=== PATIENT | female | born 1955 | race Caucasian/White ===

== ENCOUNTER → 2017-05-07 | Outpatient (CLI) | payer BC ==
--- NOTE | 2017-05-07 13:06 | ECHOS ---
STRESS ECHOCARDIOGRAM DATE OF SERVICE: 05/07/17 INDICATIONS: Chest pain MEDICATIONS:: Aspirin. BASELINE HEART RATE: 97 BASELINE BLOOD PRESSURE: 152/56 MAXIMUM HEART RATE: 157 MAXIMUM BLOOD PRESSURE: 188/69 85% MPHR: 136 100% MPHR: 160 METS: 8.3 MAXIMUM STAGE REACHED: 3 TOTAL EXERCISE TIME: 7 minutes INDICATIONS: Chest pain. CLINICAL INFORMATION: Chest pain. RESULTS: Showed a heart rate of 97, pressure is 152/36 mmHg. Baseline EKG showed sinus mechanism. The patient exercised on the Tucker protocol for a total of 7 minutes and achieved a with max heart rate was 157 beats per minute which is about 98% of maximum predicted heart rate. Maximum blood pressure was 188/69 mmHg. Clinically, the patient did not have any symptoms of chest pain or discomfort. The EKG showed about 0.[address]-segment depression. Echocardiogram images and echocardiogram images from parasternal long axis view, parasternal short axis view, apical 4 chamber view and apical 2 chamber views were obtained as a baseline images at the peak of the heart rate, as well as on recovery. The echocardiogram images showed overall good augmentation in the left ventricular systolic function without any evidence of wall motion abnormalities consistent with ischemia. CONCLUSION: 1. Good exercise capacity. 2. Mild EKG changes in response to exercise. 3. Normal echocardiogram in response to exercise. MMODL / IJN: [id number] /
--- NOTE | 2017-05-09 07:22 | MM ---
Reason for exam: screening (asymptomatic). Last mammogram was performed 1 year and 5 months ago. History: Patient is postmenopausal. Took hormonal contraceptives for 11 years. Physical Findings: A clinical breast exam by your physician is recommended on an annual basis and results should be correlated with mammographic findings. MG Screening Mammo w CAD Bilateral CC and MLO view(s) were taken. Prior study comparison: November 24, 2015, bilateral MG screening mammo w CAD. October 28, 2014, bilateral MG screening mammo w CAD. September 16, 2013, bilateral digital screening mammo w/CAD. There are scattered fibroglandular densities. No significant changes when compared with prior studies. ASSESSMENT: Benign, BI-RAD 2 RECOMMENDATION: Routine screening mammogram of both breasts in 1 year.
== END | disposition home or self-care (01) ==
LOC: RADMAMWWP 07:16
PROVIDERS: ATTEND Family Medicine
DX: Z12.31 Encounter for screening mammogram for malignant neoplasm of breast (principal); R07.89 Other chest pain
CPT/HCPCS: 93017; 93350; G0202

== ENCOUNTER → 2018-03-11 | Outpatient (CLI) | payer BC ==
--- NOTE | 2018-03-11 10:07 | BD ---
EXAMINATION TYPE: Axial Bone Density DATE OF EXAM: 03/11/2018 CLINICAL HISTORY: Postmenopausal, Z 78.0 Height: 57inches Weight: 180 FRAX RISK QUESTIONS: Alcohol (3 or more units per day): no Family History (Parent hip fracture): no Glucocorticoids (More than 3mos): no (Ex: prednisone, prednisolone, methylprednisolone, dexamethasone, and hydrocortisone). History of Fracture in Adulthood: no Secondary Osteoporosis: 1. Type 1 Diabetes: no 2. Hyperthyroidism: no 3. Menopause before 45: no, 49 4. Malnutrition: no 5. Chronic liver disease: no Rheumatoid Arthritis: no Current Tobacco Use: no RISK FACTORS HISTORY OF: Family History of Osteoporosis: no Active: yes Diet low in dairy products/other sources of calcium: no Postmenopausal woman: yes Take estrogen and/or progesterone medications: not now How long: hormonal contraceptives about 11 years Lost more than 2 inches in height since high school: no Frequent falls: no Poor Health: no Hyperparathyroidism: no Adrenal Insufficiency: no MEDICATIONS: Prednisone or other steroids: no Thyroid Medications: no Osteoporosis Medications: not now Which medication: Boniva & another before that How Long: a couple years Additional Medications: baby aspirin Additional History: EXAM MEASUREMENTS: Bone mineral densitometry was performed using the [employer]. Bone mineral density as measured about the Lumbar spine is: ----- L1-L4(G/cm2): 0.922 T Score Values are as follows: ----- L2: -1.9 ----- L3: -1.9 ----- L4: -1.2 ----- L1-L4: -2.1 Bone mineral density has: Decreased -1.3% since study of: 11/08/2014 Bone mineral density about the R hip (g/cm2): 0.706 Bone mineral density about the L hip (g/cm2): 0.670 T Score values are as follows: -----R Neck: -2.4 -----L Neck: -2.6 -----R Total: -1.9 -----L Total: -1.5 Bone mineral density has: Decreased -5.5% since study of: 11/08/2014 IMPRESSION: Osteoporosis (T Score less than -2.5). There is increased fracture risk and therapy is usually indicated based on age. Re-Screen 1-2 years. NOTE: T-SCORE=SD OF THE YOUNG ADULT MEAN.
== END | disposition home or self-care (01) ==
LOC: RADMAMWWP 07:37
PROVIDERS: ATTEND Family Medicine
DX: M81.0 Age-related osteoporosis without current pathological fracture (principal); Z78.0 Asymptomatic menopausal state
CPT/HCPCS: 77080

== ENCOUNTER → 2018-03-11 | Outpatient (CLI) | payer BC ==
[2018-03-11 09:13] LABS: Basophils % (A) 1 %; Eosinophils # (A) 0.1 k/uL (0-0.7); Eosinophils % (A) 2 %; HCT 42.6 % (34.0-46.0); HGB 14.1 gm/dL (11.4-16.0); Lymphocytes # (A) 1.3 k/uL (1.0-4.8); Lymphocytes % (A) 25 %; MCH 30.1 pg (25.0-35.0); MCHC 33.1 g/dL (31.0-37.0); MCV 91.1 fL (80.0-100.0); Mean Platelet Volume 6.7; Monocytes # (A) 0.4 k/uL (0-1.0); Monocytes % (A) 7 %; Neutrophils # (A) 3.2 k/uL (1.3-7.7); Neutrophils % (A) 63 %; Platelet Count 262 k/uL (150-450); RBC 4.68 m/uL (3.80-5.40); RDW 13.6 % (11.5-15.5); WBC 5.1 k/uL (3.8-10.6)
== END | disposition home or self-care (01) ==
LOC: LABPAT 08:25
PROVIDERS: ATTEND Surgery
DX: Z01.812 Encounter for preprocedural laboratory examination (principal); K43.2 Incisional hernia without obstruction or gangrene
CPT/HCPCS: 36415; 85025; 93005

== ENCOUNTER → 2018-03-14 | Outpatient (CLI) | payer BC | END | disposition home or self-care (01) | LOC: LABWHC1 08:00 | PROVIDERS: ATTEND Surgery | DX: Z01.812 Encounter for preprocedural laboratory examination (principal); K43.2 Incisional hernia without obstruction or gangrene | CPT/HCPCS: 36415; 86850; 86900; 86901 ==

== ENCOUNTER 2018-03-25 06:34 | Day surgery (SDC) | payer BC, MEDICARE ==
[2018-03-14 10:45] VITALS: BMI 35.5
[~2018-03-25 06:34] MED LIST: DEXAMETHASONE SOD PHOSPHATE 10 MG/ML 1 ML VIAL IV ONE; HEPARIN SODIUM,PORCINE 5,000 UNIT/ML 1 ML VIAL SQ ONE; LACTATED RINGERS 1,000 ML IV SCH; LIDOCAINE 1% 20 ML VIAL (10MG/ML) FOR IV START INTRADERMA PRN; MIDAZOLAM 2 MG/2 ML VIAL IV PRN; ONDANSETRON 4 MG/2 ML VIAL IVP ONE; ceFAZolin IN SWFI 2 GM/20 ML SYRINGE IVP ONE; fentaNYL (PF) 50 MCG/ML 2 ML AMP IV PRN
--- NOTE | 2018-03-25 07:32 | P.ONQ ---
Anesthesiology Proc Note - PNB - Peripheral Nerve Block Performed Bilateral Rectus Abdominis Single Time Out Performed: Yes Procedure Start Time: :11 Procedure Stop Time: : Indication: Acute Post-Operative Pain, Requested by physician Sedation Type: Sedate with meaningful contact maintained Preparation: Sterile Prep Position: Supine Needle Size: 50mm (2") Needle Gauge: 21 Technique: Ultrasound Injectate: 0.5% Ropivacaine (see comment for volume) (Ropi 0.5% 15 ml solution Bilateral) Blood Aspirated: No Pain Paresthesia on Injection Noted: No Resistance on Injection: Normal Events: Uneventful and Well Tolerated
--- NOTE | 2018-03-25 07:59 | P.GSHP ---
History of Present Illness H&P Date: 03/25/18 Chief Complaint: Incisional hernia This is a 62-year-old female who presents today for laparoscopic robotic system repair of incisional hernia. Patient developed an incisional hernia located in the low midline position. Past Medical History Past Medical History: Musculoskeletal Disorder Additional Past Medical History / Comment(s): finishing steroids currently for sciatic pain History of Any Multi-Drug Resistant Organisms: None Reported Past Surgical History: Section Additional Past Surgical History / Comment(s): D & C Past Anesthesia/Blood Transfusion Reactions: No Reported Reaction Smoking Status: Former smoker - Past Family History Mother Family Medical History: No Reported History Medications and Allergies Home Medications Medication Instructions Recorded Confirmed Type Aspirin 81 mg PO DAILY 01/06/15 03/25/18 History Baclofen [Lioresal] 10 mg PO HS 03/14/18 03/25/18 History Naltrexone HCl/Bupropion HCl 1 each PO BID 03/14/18 03/25/18 History [Contrave ER 8-90 mg Tablet] predniSONE 10 mg PO DAILY 03/14/18 03/25/18 History Allergies Allergy/AdvReac Type Severity Reaction Status Date / Time No Known Allergies Allergy Verified 03/25/18 07:04 Surgical - Exam Vital Signs Temp Pulse Resp BP Pulse Ox 98.0 F 95 16 186/81 97 03/25/18 07:01 03/25/18 07:01 03/25/18 07:01 03/25/18 07:01 03/25/18 07:01 - General well developed, no distress - Eyes PERRL - ENT normal pinna - Neck no masses - Respiratory normal expansion - Cardiovascular Rhythm: regular - Abdomen Abdomen: soft, non tender Hernia: incisional (10 cm incisional hernia) Assessment and Plan Assessment: Incisional hernia. We'll perform laparoscopic robotic system repair
[2018-03-25] MEDS ORDERED: LIDOCAINE 1% INJ 10MG/ML (20 ML MDV) ONE (08:06)
[2018-03-25] MEDS ORDERED: PROPOFOL 10 MG/ML 20 ML VIAL IV ONE (08:06)
[2018-03-25] MEDS ORDERED: ROPIVACAINE 5 MG/ML 30 ML VIAL ONE (08:06)
[2018-03-25] MEDS ORDERED: MIDAZOLAM 2 MG/2 ML VIAL ONE (08:06)
[2018-03-25] MEDS ORDERED: ROCURONIUM BROMIDE 10 MG/ML 10 ML VIAL IV ONE (08:06)
[2018-03-25] MEDS ORDERED: fentaNYL (PF) 50 MCG/ML 2 ML AMP ONE (08:06)
[2018-03-25] MEDS ORDERED: SUCCINYLCHOLINE CHLORIDE 100 MG/5 ML SYR IV ONE (08:06)
[2018-03-25] MEDS ORDERED: BUPIVACAIN-EPI 0.5%-1:200,000 30 ML VIAL SQ ONE (08:27)
[2018-03-25 09:46] VITALS: RESP 16; TEMP 97
--- NOTE | 2018-03-25 10:17 | P.OP ---
Date of Procedure: 03/25/18 Preoperative Diagnosis: Incarcerated incisional hernia Postoperative Diagnosis: Incarcerated incisional hernia Procedure(s) Performed: Laparoscopic robotic-assisted repair of incarcerated incisional hernia Partial omentectomy Anesthesia: VICENTE Surgeon: Arnaud Rivera Estimated Blood Loss (ml): 5 Pathology: other (Omentum) Condition: stable Disposition: PACU Description of Procedure: The patient was placed on the operating table in the supine position. He received general anesthesia. His abdomen was prepped and draped usual fashion. Using a 5 mm optical trocar under direct visualization the peritoneal cavity was entered in the left upper quadrant. The abdomen was then insufflated. The laparoscope was placed back into the perineal cavity. Next a 8 mm robotic trocar was placed in the left lower quadrant and a 12 mm robotic trocar was placed in the left lateral position. The original 5 mm trocar was exchanged for a 8 mm robotic trocar. The patient's placed in the left side up position. And the patient was docked to the robot. The incisional hernia was visualized. Using hook cautery the peritoneum over the incisional hernia was excised. The hernia contained incarcerated omentum. This was dissected free with left cautery. The fascial opening was repaired using 0V LOC suture. Next a piece of 11 cm round ventral light ST mesh was placed into the. Cavity and secured with 2 OV lock suture. The patient was undocked the robot. The needles were retrieved. The transected omentum was retrieved. The fascia of the 12 mm trocar site was closed with 0 Ethibond suture. Skin was closed interrupted 3-0 Monocryl suture. Dermabond dressings was applied. Patient tolerated procedure well and was sent to recovery room stable condition.
[2018-03-25] MEDS ORDERED: HYDROcodone/APAP 7.5-325MG 1 EACH TAB PO ONE (11:28)
[2018-03-25 12:11] VITALS: BP 130/83; PULSE 97
== END 2018-03-25 12:45 | disposition home or self-care (01) ==
LOC: OR 06:34
PROVIDERS: ATTEND Surgery
DX: K43.0 Incisional hernia with obstruction, without gangrene (principal); M54.30 Sciatica, unspecified side; Z79.899 Other long term (current) drug therapy; Z87.891 Personal history of nicotine dependence; Z79.82 Long term (current) use of aspirin
CPT/HCPCS: 86900; 86901; 88305; 86850; 36415; 49655; 64488; C1781; J2250; J1644; J1100; J2405; J2001; J3010; J2795; J0330; J2704; J0690

== ENCOUNTER → 2018-05-08 | Outpatient (CLI) | payer BC, MEDICARE ==
--- NOTE | 2018-05-09 08:56 | MM ---
Reason for exam: screening (asymptomatic). Last mammogram was performed 1 year ago. History: Patient is postmenopausal. Took hormonal contraceptives for 11 years. Physical Findings: A clinical breast exam by your physician is recommended on an annual basis and results should be correlated with mammographic findings. MG Screening Mammo w CAD Bilateral CC and MLO view(s) were taken. Prior study comparison: May 07, 2017, bilateral MG screening mammo w CAD. November 24, 2015, bilateral MG screening mammo w CAD. There are scattered fibroglandular densities. No suspicious abnormality. No significant changes when compared with prior studies. ASSESSMENT: Negative, BI-RAD 1 RECOMMENDATION: Routine screening mammogram of both breasts in 1 year.
== END | disposition home or self-care (01) ==
LOC: RADMAMWWP 08:07
PROVIDERS: ATTEND Family Medicine
DX: Z12.31 Encounter for screening mammogram for malignant neoplasm of breast (principal)
CPT/HCPCS: 77067

== ENCOUNTER → 2018-05-30 | Outpatient (CLI) | payer BC ==
--- NOTE | 2018-05-30 13:54 | MR ---
EXAMINATION TYPE: MR lumbar spine wo con DATE OF EXAM: 05/30/2018 1:44 PM COMPARISON: NONE HISTORY: Lumbar Radiculopathy Multiplanar, MultiSpin echo imaging of the lumbar spine was performed. L1-L2: Moderate degenerative disc space narrowing. Mild circumferential disc bulge greatest posterior ly. Mild effacement ventral thecal sac. No evidence for herniation or protrusion. No evidence for zoe tral stenosis. Bilateral foraminal encroachment. L2-L3: Normal disc appearance without desiccation. No herniation, protrusion or disc bulging. No ca nal stenosis is present. Foramina are patent bilaterally. L3-L4: Normal disc appearance without desiccation. No herniation, protrusion or disc bulging. No ca nal stenosis is present. Foramina are patent bilaterally. L4-L5: Moderate degenerative disc desiccation. Grade 1 anterolisthesis L4 and L5 measuring 5.1 mm. Mo derate posterior disc bulge resulting in mild central stenosis. Facet joint arthropathy resulting in bilateral foraminal encroachment. L5-S1: Normal disc appearance without desiccation. No herniation, protrusion or disc bulging. No ca nal stenosis is present. Foramina are patent bilaterally. Lumbar segments are intact. No paraspinal masses are identified. Conus medullaris has a normal appe arance. Scattered degenerative endplate marrow changes. IMPRESSION: 1. Multilevel degenerative disc disease. 2. 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
== END | disposition home or self-care (01) ==
LOC: RADMRIMAIN 13:10
PROVIDERS: ATTEND Nurse Practitioner Family
DX: M48.061 Spinal stenosis, lumbar region without neurogenic claudication (principal); M51.36 Other intervertebral disc degeneration, lumbar region
CPT/HCPCS: 72148

== ENCOUNTER 2022-12-11 17:42 | Emergency (ER) | payer BC ==
[2022-12-11 17:48] VITALS: BP 140/81; PULSE 110; TEMP 98.3
--- NOTE | 2022-12-11 18:54 | ED ---
General Adult HPI - General Chief complaint: Extremity Injury, Upper Stated complaint: Fall Time Seen by Provider: 12/11/22 18:27 Source: patient, family, RN notes reviewed Mode of arrival: ambulatory Limitations: no limitations - History of Present Illness Initial comments: Patient is a pleasant 67-year-old female presenting to the emergency department following a fall. Incident occurred prior to arrival. Patient was walking down a step and hit a generator and fell. Patient states she did strike her head however no loss of consciousness. No alcohol. No neck pain. Patient does have discomfort of her right upper arm. Patient states it feels a rubber. No weakness. Patient also has some mild discomfort of the right hip however is able to ambulate with discomfort. - Related Data Home Medications Medication Instructions Recorded Confirmed Aspirin 81 mg PO DAILY 01/06/15 03/25/18 Baclofen [Lioresal] 10 mg PO HS 03/14/18 03/25/18 Naltrexone HCl/Bupropion HCl 1 each PO BID 03/14/18 03/25/18 [Contrave ER 8-90 mg Tablet] predniSONE 10 mg PO DAILY 03/14/18 03/25/18 Previous Rx's Medication Instructions Recorded Docusate [Colace] 100 mg PO BID #20 capsule 03/25/18 HYDROcodone/APAP 7.5-325MG [Haddock 1 tab PO Q4H PRN 3 Days #18 tab 03/25/18 7.5-325] Ibuprofen [Motrin] 600 mg PO Q6HR PRN #20 tab 12/11/22 Allergies Allergy/AdvReac Type Severity Reaction Status Date / Time No Known Allergies Allergy Verified 03/25/18 07:04 Review of Systems ROS Statement: Those systems with pertinent positive or pertinent negative responses have been documented in the HPI. ROS Other: All systems not noted in ROS Statement are negative. Constitutional: Denies: fever Eyes: Denies: eye pain ENT: Denies: ear pain Respiratory: Denies: cough Cardiovascular: Denies: chest pain Endocrine: Denies: fatigue Gastrointestinal: Denies: abdominal pain Genitourinary: Denies: dysuria Musculoskeletal: Reports: as per HPI Skin: Denies: rash Neurological: Reports: as per HPI Past Medical History Past Medical History: No Reported History Additional Past Medical History / Comment(s): finishing steroids currently for sciatic pain History of Any Multi-Drug Resistant Organisms: None Reported Past Surgical History: Joint Replacement Additional Past Surgical History / Comment(s): D & C Past Anesthesia/Blood Transfusion Reactions: No Reported Reaction Past Psychological History: No Psychological Hx Reported Past Alcohol Use History: None Reported Past Drug Use History: None Reported - Past Family History Mother Family Medical History: No Reported History General Exam Limitations: no limitations General appearance: alert, in no apparent distress Head exam: Present: other (Ecchymosis and soft tissue swelling right forehead) Eye exam: Present: normal appearance, PERRL, EOMI ENT exam: Present: normal oropharynx Neck exam: Present: normal inspection. Absent: tenderness, meningismus Respiratory exam: Present: normal lung sounds bilaterally Cardiovascular Exam: Present: regular rate, normal rhythm Expanded Peripheral pulses: 2+: Radial (R) GI/Abdominal exam: Present: soft. Absent: tenderness Extremities exam: Present: tenderness (Tenderness and swelling right mid humerus. Distally the extremity is neurovascular intact.) Neurological exam: Present: alert, oriented X3, CN II-XII intact. Absent: motor sensory deficit Expanded Neurological exam: Present: protecting the airway Patient oriented to: Present: person, place, time Speech: Present: fluid speech Cranial nerves: EOM's Intact: Normal, Facial Sensation: Normal Sensory exam: Upper Extremity Light Touch: Normal, Lower Extremity Light Touch: Normal Motor strength exam: RUE: 5, LUE: 5, RLE: 5, LLE: 5 Eye Response: (4) open spontaneously Motor Response: (6) obeys commands Verbal Response: (5) oriented Psychiatric exam: Present: normal affect, normal mood Skin exam: Present: other (Right forehead ecchymosis) Course Vital Signs 12/11/22 17:44 Temperature 98.3 F Pulse Rate 110 H Respiratory 20 Rate Blood Pressure 140/81 O2 Sat by Pulse 95 Oximetry Medical Decision Making - Medical Decision Making Was pt. sent in by a medical professional or institution (, PA, BUYER LIAISON, urgent care, hospital, or intermediate...) When possible be specific @ -No Did you speak to anyone other than the patient for history (EMS, parent, family, police, friend...)? What history was obtained from this source @ -No Did you review nursing and triage notes (agree or disagree)? Why? @ -I reviewed and agree with nursing and triage notes Were old charts reviewed (outside hosp., previous admission, EMS record, old EKG, old radiological studies, urgent care reports/EKG's, intermediate records)? Report findings @ -No old charts were reviewed Differential Diagnosis (chest pain, altered mental status, abdominal pain women, abdominal pain men, vaginal bleeding, weakness, fever, dyspnea, syncope, headache, dizziness, GI bleed, back pain, seizure, CVA, palpatations, mental health)? @ -not applicable EKG interpreted by me (3pts min.). @ -As above X-rays interpreted by me (1pt min.). @ -Right humerus x-ray shows spiral fracture of the proximal humerus. Right hip and pelvis x-ray shows no acute fracture. CT interpreted by me (1pt min.). @ -Report reviewed U/S interpreted by me (1pt. min.). @ -None done What testing was considered but not performed or refused? (CT, X-rays, U/S, labs)? Why? @ -None What meds were considered but not given or refused? Why? @ -None Did you discuss the management of the patient with other professionals (professionals i.e. , PA, BUYER LIAISON, lab, RT, psych nurse, social service agency director, market asset protection manager, teacher, chief program officer, case investigator)? Give summary @ -No Was smoking cessation discussed for >3mins.? @ -No Was critical care preformed (if so, how long)? @ -No Were there social determinants of health that impacted care today? How? (Homelessness, low income, unemployed, alcoholism, drug addiction, transportation, low edu. Level, literacy, decrease access to med. care, skilled nursing, rehab)? @ -No Was there de-escalation of care discussed even if they declined (Discuss DNR or withdrawal of care, Hospice)? DNR status @ -No What co-morbidities impacted this encounter? (DM, HTN, Smoking, COPD, CAD, Cancer, CVA, ARF, Chemo, Hep., AIDS, mental health diagnosis, sleep apnea, morbid obesity)? @ -None Was patient admitted / discharged? Hospital course, mention meds given and route, prescriptions, significant lab abnormalities, going to OR and other pertinent info. @ -Patient reevaluated and updated. Patient wants only Motrin for pain. Patient advised to follow-up with orthopedics Undiagnosed new problem with uncertain prognosis? @ -No Drug Therapy requiring intensive monitoring for toxicity (Heparin, Nitro, Insulin, Cardizem)? @ -No Were any procedures done? @ -No Diagnosis/symptom? @ -Spiral fracture proximal humerus Acute, or Chronic, or Acute on Chronic? @ -Acute Uncomplicated (without systemic symptoms) or Complicated (systemic symptoms)? @ -default Side effects of treatment? @ -No Exacerbation, Progression, or Severe Exacerbation? @ -No Poses a threat to life or bodily function? How? (Chest pain, [place], [place], pneumonia, PE, COPD, DKA, ARF, appy, cholecystitis, CVA, Diverticulitis, Homicidal, Suicidal, threat to staff... and all critical care pts) @ -No Disposition Clinical Impression: Proximal humerus fracture Disposition: HOME SELF-CARE Condition: Stable Instructions (If sedation given, give patient instructions): Arm Fracture in Adults (ED) Additional Instructions: Use sling at all times. Prescription for Motrin 600% pharmacy. Ice to affected area. Please do follow-up with orthopedics in the next couple of days for recheck, number provided. Return for increased pain, swelling, arm or hand problems, weakness, worsening symptoms or other concerns. Prescriptions: Ibuprofen [Motrin] 600 mg PO Q6HR PRN #20 tab PRN Reason: Pain Is patient prescribed a controlled substance at d/c from ED?: No Referrals: Luz Haynes DO [Primary Care Provider] - 1-2 days De Casillas DO [Doctor of Osteopathic Medicine] - 1-2 days Time of Disposition: 20:17
[2022-12-11] MEDS: HYDROmorphone 1 MG/ML 1 ML SYRINGE IM STA ×2 (19:05→20:03)
--- NOTE | 2022-12-11 19:56 | CT ---
EXAMINATION TYPE: CT brain wo con DATE OF EXAM: 12/11/2022 COMPARISON: None INDICATION: fell and hit head DLP: 1164.4 mGycm, Automated exposure control for dose reduction was used. CONTRAST: None CT of the brain is performed utilizing 3 mm thick sections through the posterior fossa and 3 mm thick sections through the remaining calvarium. Study is performed within 24 hours of arrival to the hosp ital. No abnormal hyperdensity is present to suggest an acute intracranial hemorrhage. No mass lesion is evident. No acute infarcts are evident. Ventricles and sulci are appropriate for the patient age. Paranasal sinuses and mastoid air cells within the [id number] are clear. There is some soft tissue swelling around the frontal temporal region on the right. No underlying fra ctures are evident. IMPRESSIONS: 1. No acute intracranial process. Follow-up MRI could be performed as clinically indicated. 2. Soft tissue swelling right frontal temporal region
[2022-12-11] MEDS ORDERED: IBUPROFEN 800 MG TAB PO STA (20:02)
--- NOTE | 2022-12-11 20:08 | XR ---
EXAMINATION TYPE: XR humerus RT DATE OF EXAM: 12/11/2022 COMPARISON: None HISTORY: Fall, pain TECHNIQUE: 2 view right humerus FINDINGS: There is a spiral fracture of the proximal diaphyseal right humerus. There is diastases of the fracture fragments. Humeral head articulates with the glenoid. Elbow appears intact. No additional fractures are evident. IMPRESSION: 1. Spiral fracture proximal diaphyseal right humerus
--- NOTE | 2022-12-11 20:09 | XR ---
EXAMINATION TYPE: XR Hip RT and AP Pelvis DATE OF EXAM: 12/11/2022 COMPARISON: None HISTORY: Trauma, pain TECHNIQUE: 2 view right hip with AP pelvis FINDINGS: There is a right femoral prosthesis with acetabular component. No acute fracture or disloca tion is evident. Left hip appears intact. Symphysis pubis and sacroiliac joints are normal. IMPRESSION: 1. No acute osseous abnormality right hip. Right hip prosthesis remains in position.
[2022-12-11] MEDS ORDERED: IBUPROFEN 600 MG STARTER PACK 4 TAB BTL PO STA (20:36)
[2022-12-11 20:58] VITALS: RESP 18
== END 2022-12-11 20:58 | disposition home or self-care (01) ==
LOC: EC 17:42
DX: S42.201A Unspecified fracture of upper end of right humerus, initial encounter for closed fracture (principal); W18.30XA Fall on same level, unspecified, initial encounter; Y93.01 Activity, walking, marching and hiking
CPT/HCPCS: 70450; 73502; 99284